=== PATIENT | male | born 1945 | race Caucasian/White ===

== ENCOUNTER → 2025-01-26 | Outpatient (CLI) | payer SELFPAY ==
--- NOTE | 2025-01-26 14:00 | PROSB_PTH ---
PATIENT: FRACISCO SILVERIO LOC: [facility] U#:[id number] AGE/SX: 79/M ROOM: RE01/26/[address]: Dr. Bronson Arzate MD : 1945 BED: DIS: 01/26/2025 SPEC #: [id number] RECD: 01/26/25 15:35 STATUS: INESSA REQ #: [id number] CHOLO: 01/26/25 14:[address]: Bronson Arzate DEPT: SURGICAL PATHOLOGY RECD BY: Floridalma Noe ENTERED: 01/27/25 08:20 SP TYPE: PROST BX OTHR DR: Kya Gallardo, [employer] Tissues: Prostate, NOS Procedures: Surgery Specimen Level IV Comments: @ Specimen number changed from [id number] to [id number] @ on 01/27/25 at 0931 by HEADER OPERATION: Prostate biopsy PRE-OP DIAGNOSIS: Elevated PSA TISSUE SUBMITTED: A- Right base MICROSCOPIC DIAGNOSIS A. 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 MICROSCOPIC DESCRIPTION Slides are reviewed. GROSS DESCRIPTION A. Received in formalin in a container labeled with the patient's name, date of , and RB are 3 contreras-massey and wispy core biopsies of soft tissue ranging from 1.1 x 0.1 cm to 1.4 x 0.1 cm. Submitted in toto in A1. [facility] 01/27/2025 CPT:40494
== END | disposition home or self-care (01) ==
PROVIDERS: PCP Nurse Practitioner Family; Referring Provider Urology; Visit Provider Urology
DX: C61 Malignant neoplasm of prostate (principal); R97.20 Elevated prostate specific antigen [PSA]
CPT/HCPCS: 88305